=== PATIENT | female | born 1985 | race African-American/Black ===

== ENCOUNTER 2016-07-28 03:00 | Emergency (ER) | payer BC, OTHER ==
[~2016-07-28] VITALS: Ht 165.1 cm; Wt 78.5 kg
[~2016-07-28 03:00] MED LIST: MOTR200T47 PO; TYLE500T PO
[2016-07-28 03:09] VITALS: BP 146/99; PULSE 64; RESP 16; TEMP 98.7; O2SAT 100
[2016-07-28 03:21] VITALS: BP 164/98; PULSE 60; RESP 18; TEMP 98.7; O2SAT 100
--- NOTE | 2016-07-28 03:27 | PD ---
HPI Chief Complaint: Chest Pain Time Seen by Provider: 03:17 Travel History International Travel<30 days: No Contact w/Intl Traveler<30days: No Traveled to known affect area: No History of Present Illness HPI The patient is a 30-year-old female that complains of a sharp pleuritic pain on the right anterior chest wall tonight. She has had a minimal cough for the past 2 days. She denies any fever or shortness of breath. 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 She states that there is no chance of . She denies any nausea, vomiting or diarrhea. [facility] Past Medical History Diminished Hearing: No ?: Not LMP: 07/02/16 : 2 Para: 2 Social History Alcohol Use: No Tobacco Use: No Substance Use: No Allergies-Medications (Allergen,Severity, Reaction): Coded Allergies: No Known Allergies (Verified , 07/28/16) Reported Meds & Prescriptions Reported Meds & Active Scripts Active Ibuprofen 600 Mg Tab 600 Mg PO TID Review of Systems Except as stated in HPI: all other systems reviewed are Neg Physical Exam Narrative GENERAL: The patient is alert, oriented 3 and slight apparent distress with her right pleuritic chest pain. Her vital signs show blood pressure 146/99 but are otherwise normal. SKIN: Warm and dry. HEAD: Atraumatic. Normocephalic. EYES: Pupils equal and round. No scleral icterus. No injection or drainage. ENT: No nasal bleeding or discharge. Mucous membranes pink and moist. NECK: Trachea midline. No JVD. CARDIOVASCULAR: Regular rate and rhythm. No murmur appreciated. RESPIRATORY: No accessory muscle use. Clear to auscultation. Breath sounds equal bilaterally. No rubs are heard. I can partially reproduce the patient's pain by pressing on the anterior chest wall lateral to the mid sternum. The patient feels that the pain is more inside. GASTROINTESTINAL: Abdomen soft, non-tender, nondistended. Hepatic and splenic margins not palpable. MUSCULOSKELETAL: No obvious deformities. No clubbing. No cyanosis. No edema. NEUROLOGICAL: Awake and alert. No obvious cranial nerve deficits. Motor grossly within normal limits. Normal speech. PSYCHIATRIC: Appropriate mood and affect; insight and judgment normal. Data Data Last Documented VS Vital Signs Date Time Temp Pulse Resp B/P Pulse Ox O2 Delivery O2 Flow Rate FiO2 1/28/17 03:24 60 18 100 Room Air 07/28/16 03:21 98.7 164/98 Orders Chest, Pa & Lat (07/28/16 03:27) Ketorolac Inj (Toradol Inj) (07/28/16 04:00) MDM Medical Decision Making Medical Screen Exam Complete: Yes Emergency Medical Condition: Yes Medical Record Reviewed: Yes Interpretation(s) The chest x-ray is normal. Differential Diagnosis Pleurisy, pneumonia, bronchitis, fractured rib, costochondritis Narrative Course The patient has pleurisy which is probably viral. Plan: The patient will be given Motrin 600 mg 3 times daily and taken regularly. She should follow-up with her primary care physician next week. Diagnosis Primary Impression: Viral pleurisy Additional Instructions: Take the Motrin regularly. In about 3 or 4 days you will have adequate anti- inflammatory levels and the pain should start subsiding. Med/Other Pt SpecificInfo: Prescription(s) given Scripts Ibuprofen 600 Mg Gep036 Mg PO TID #40 TAB Ref 0 Prov:Elia Alejo MD 07/28/16 Disposition: 01 DISCHARGE HOME Condition: Stable Elia Alejo MD Jul 28, 2016 03:27
[2016-07-28] MEDS ORDERED: IBUP-232 PO (03:53)
--- NOTE | 2016-07-28 03:58 | RADHPO ---
EXAM DATE/TIME: 07/28/2016 03:33 [place] COMPARISON: No previous studies available for comparison. INDICATIONS : Right chest pain. MEDICAL HISTORY : None. SURGICAL HISTORY : None. ENCOUNTER: Initial ACUITY: 1 day PAIN SCORE: 9/10 LOCATION: Right chest FINDINGS: PA and lateral views of the chest demonstrate the lungs to be symmetrically aerated without evidence of mass, infiltrate or effusion. The cardiomediastinal contours are unremarkable. Osseous structure s are intact. CONCLUSION: Normal examination. Evan Edwards MD on July 28, 2016 at 3:56 Board Certified Radiologist. This report was verified electronically.
[2016-07-28] MEDS ORDERED: KETOROLAC TROMETHAMINE 60 MG/2 ML (IM) VIAL IM ONE (04:00)
[2016-07-28 04:26] VITALS: BP 144/84; PULSE 60; RESP 18; O2SAT 99
== END 2016-07-28 04:27 | disposition home or self-care (01) ==
LOC: PHED 03:00
DX: B34.9 Viral infection, unspecified (principal); R09.1 Pleurisy; R05 Cough
CPT/HCPCS: 71020; 96372; 99284; J1885